=== PATIENT | female | born 1960 | race Caucasian/White ===

== ENCOUNTER 2017-07-02 06:31 | Day surgery (SDC) | payer OTHER ==
[2017-07-02] MEDS: CEFAZOLIN 2 GM/50 ML (PMX) 50 ML IVPB (07:00)
[2017-07-02] MEDS ORDERED: EPHEDrine SULFATE 50 MG/5 ML SYG (07:00)
[2017-07-02] MEDS ORDERED: SOD CHLORIDE 0.9% 1,000 ML IV (07:00)
[2017-07-02] MEDS ORDERED: ROCURONIUM 50 MG INJ (08:24)
[2017-07-02] MEDS ORDERED: ROPIVACAINE 0.5 % 30 ML VIAL ×2 (08:24→08:25)
[2017-07-02] MEDS ORDERED: MIDAZOLAM 1 MG/ML 2 ML INJ (08:24)
[2017-07-02] MEDS ORDERED: PROPOFOL 20 ML (08:24)
[2017-07-02] MEDS ORDERED: CEFAZOLIN 1 GM INJ (08:24)
[2017-07-02] MEDS ORDERED: MEPERIDINE 25 MG INJ IV (08:30)
[2017-07-02] MEDS ORDERED: METOCLOPRAMIDE 10 MG INJ IV (08:30)
[2017-07-02] MEDS ORDERED: DIPHENHYDRAMINE 50 MG INJ IV (08:30)
[2017-07-02] MEDS ORDERED: hydrALAzine 20 MG INJ IV (08:30)
[2017-07-02] MEDS ORDERED: LABETALOL HCL 20MG INJ IV (08:30)
[2017-07-02] MEDS ORDERED: EPHEDrine SULFATE 50 MG/5 ML SYG IV (08:30)
[2017-07-02] MEDS ORDERED: FENTAnyl 50 MCG/ML VIAL IV ×3 (08:30)
[2017-07-02] MEDS ORDERED: HYDROmorphONE (0.2 MG/ML) 10ML SYG IV ×2 (08:30)
[2017-07-02] MEDS ORDERED: BUPIVACAINE 0.25% (MPF) 30 ML INJ (08:58)
[2017-07-02] MEDS: BUPIVACAINE 0.25% (MPF) 30 ML INJ INJ (09:26)
[2017-07-02] MEDS ORDERED: DEXAMETHASONE 4 MG/ML 1 ML INJ (09:40)
[2017-07-02] MEDS ORDERED: METOCLOPRAMIDE 10 MG INJ (09:40)
[2017-07-02] MEDS ORDERED: ONDANSETRON 4 MG INJ (09:40)
[2017-07-02] MEDS ORDERED: KETOROLAC 30 MG INJ (09:40)
[2017-07-02] MEDS ORDERED: SUGAMMADEX SODIUM 200 MG/2 ML VIAL IV (09:41)
[2017-07-02] MEDS: HYDROmorphONE (0.2 MG/ML) 10ML SYG IV (10:25)
[2017-07-02] MEDS: ONDANSETRON 4 MG INJ IV (10:26)
[2017-07-02] MEDS: OXYCODONE/ACETAMINOPHEN (5/325) TAB PO ×3 (10:46→10:58)
[2017-07-02] MEDS: HYDROCODONE/APAP (5/325) TAB PO (10:59)
[2017-07-02] MEDS ORDERED: HYDROCODONE/APAP (10/325) TAB PO (13:30)
== END 2017-07-02 12:15 | disposition home or self-care (01) ==
LOC: SDS 06:31
DX: K80.10 Calculus of gallbladder with chronic cholecystitis without obstruction (principal); I10 Essential (primary) hypertension; J45.909 Unspecified asthma, uncomplicated; E66.9 Obesity, unspecified; Z68.35 Body mass index [BMI] 35.0-35.9, adult
CPT/HCPCS: 47562; 88304

== ENCOUNTER 2018-02-03 00:35 | Emergency (ER) | payer OTHER ==
[2018-02-03] MEDS: IPRATROPIUM (NEB) 0.5 MG/2.5 ML AMP NEB (02:39)
[2018-02-03] MEDS: ALBUTEROL 0.083% (NEB) 2.5 MG/3 ML AMP NEB (02:39)
== END 2018-02-03 03:05 | disposition home or self-care (01) ==
LOC: E/R 00:35
DX: J45.901 Unspecified asthma with (acute) exacerbation (principal); J22 Unspecified acute lower respiratory infection; I10 Essential (primary) hypertension
CPT/HCPCS: 94664; 99283-25